=== PATIENT | female | born 1975 | race American Indian/Alaskan Native ===

== ENCOUNTER 2016-11-08 13:32 | Emergency (ER) | payer SELFPAY ==
[2016-11-08 15:26] VITALS: BP 151/87
--- NOTE | 2016-11-08 17:00 | Emergency Department Report ---
Entered by KATHRYN SANCHEZ, acting as scribe for MARYANN CESPEDES PA. ED Lower Extremity HPI - General Chief Complaint: Extremity Injury, Lower Stated Complaint: POSS BROKEN/SPRUNG R TOE Source: patient Mode of arrival: Ambulatory Limitations: No Limitations - History of Present Illness Initial Comments: 41 year old female with no significant PMHx presents to the ED c/o right 5th phalanges pain that began 2 hours ago. Patient states she was walking and her toes slipped out of her shoe, and subsequently bent. Rates pain a 10/10 in severity. Associated symptoms include numbness, but she denies swelling, tingling, and fever. Patient was driven to the ED by her . LMP 2016. Complaint: foot injury (right 5th phalanges) Onset/Timin -: hour(s) Injury: Toes: Right (5th phalanges) Type of Injury: unknown Severity: moderate Severity scale (0 -10): 10 Improves With: nothing Worsens With: nothing Context: walking Other Symptoms: other (numbness) Associated Symptoms: numbness, able to partially bear weight, ambulatory. denies: snap/pop sensation, swelling, tingling - Related Data Previous Rx's Medication Instructions Recorded Last Taken Type Acetaminophen/Codeine [Tylenol 1 tab PO Q4HR PRN #20 tablet 11/08/16 Unknown Rx /Codeine # 3 tab] Allergies Allergy/AdvReac Type Severity Reaction Status Date / Time iodine Allergy Angioedema Verified 11/08/16 15:19 ED Review of Systems Comment: All other systems reviewed and negative Constitutional: denies: chills, fever, other (tingling) Respiratory: denies: cough, orthopnea, shortness of breath, SOB with exertion, SOB at rest Cardiovascular: denies: dyspnea on exertion, orthopnea Gastrointestinal: denies: nausea, vomiting Musculoskeletal: other (5th right phalanges pain) Skin: denies: rash, other (5th phalanges edema and erythema) Neurological: numbness ED Past Medical Hx - Past Medical History Hx Asthma: Yes - Surgical History Additional Surgical History: Back, DNC - Social History Smoking Status: Never Smoker Substance Use Type: Alcohol - Medications Home Medications: Home Medications Medication Instructions Recorded Confirmed Last Taken Type Acetaminophen/Codeine [Tylenol 1 tab PO Q4HR PRN #20 tablet 11/08/16 Unknown Rx /Codeine # 3 tab] ED Physical Exam - General Limitations: No Limitations General appearance: alert, in no apparent distress - Head Head exam: Present: atraumatic, normocephalic - Eye Eye exam: Present: normal appearance, EOMI Pupils: Present: normal accommodation - ENT ENT exam: Present: normal exam, mucous membranes moist - Neck Neck exam: Present: normal inspection, full ROM - Respiratory Respiratory exam: Present: normal lung sounds bilaterally. Absent: respiratory distress, wheezes, rales, rhonchi - Cardiovascular Cardiovascular Exam: Present: regular rate, normal rhythm. Absent: systolic murmur, diastolic murmur, rubs, gallop - GI/Abdominal GI/Abdominal exam: Present: soft. Absent: distended - Extremities Exam Extremities exam: Present: normal inspection, full ROM, tenderness (right 5th phalanges tenderness), normal capillary refill. Absent: joint swelling (right 5th phalanges) - Expanded Lower Extremity Exam Right Hip exam: Present: normal inspection, full ROM Upper Leg exam: Present: normal inspection, full ROM Knee exam: Present: normal inspection, full ROM Lower Leg exam: Present: normal inspection, full ROM Ankle exam: Present: normal inspection, full ROM Foot/Toe exam: Present: normal inspection, full ROM, tenderness (right 5th phalanges). Absent: swelling, abrasion, laceration, ecchymosis, deformity, dislocation, erythema Neuro vascular tendon exam: Present: no vascular compromise. Absent: pulse deficit, abnormal cap refill, motor deficit, sensory deficit, tendon deficit, pallor Gait: Positive: observed and limited by pain - Back Exam Back exam: Present: normal inspection, full ROM - Neurological Exam Neurological exam: Present: alert, oriented X3, normal gait - Psychiatric Psychiatric exam: Present: normal affect, normal mood - Skin Skin exam: Present: warm, dry, intact. Absent: rash ED Course Vital Signs 11/08/16 15:20 Temperature 98.1 F Pulse Rate 96 H Respiratory 18 Rate Blood Pressure 151/87 O2 Sat by Pulse 98 Oximetry ED Lower Extremity MDM - Medical Decision Making Patient was evaluated in fast track area of ED by this provider. Patient presented with right 5th phalanges pain that began 2 hours ago. In the ED, the toe will be thao taped. Patient is in no acute distress at this time. She will be discharged home in a surgical boot with a prescription for Tylenol 3. Mother instructed to follow up with an orthopedic doctor. Patient verbalized understanding. She is encouraged to return to the emergency room for any worsening symptoms. ED Disposition Clinical Impression: Closed fracture of fifth toe of right foot Disposition: DISCHARGED TO HOME OR SELFCARE Is pt being admited?: No Does the pt Need Aspirin: No Condition: Stable Instructions: Toe Fracture (ED) Additional Instructions: Please keep the toe thao tape it takes approximately 6 weeks for proper healing. Refer to orthopedics as listed below for your convenience I recommend that she least follow-up with the one time to be sure that is healing properly. Prescriptions: Acetaminophen/Codeine [Tylenol /Codeine # 3 tab] 1 tab PO Q4HR PRN #20 tablet PRN Reason: Pain Referrals: PRIMARY CARE, [Primary Care Provider] - 3-5 Days DANNY JUÁREZ MD [Staff Physician] - 3-5 Days This documentation as recorded by the LAURA villafana JASMINE,accurately reflects the service I personally performed and the decisions made by , MARYANN CESPEDSE PA.
--- NOTE | 2016-11-09 08:32 | XRay Report ---
X-ray RIGHT FIFTH TOE THREE VIEWS: 11/08/16 13:32:00 CLINICAL: Trauma and pain. FINDINGS: A transverse nondisplaced fracture of the proximal phalanx of the fifth toe. No callus. The rest of the bones are normal. The joint spaces are normal. Normal soft tissues. No soft tissue air or foreign body. IMPRESSION: Acute traumatic nondisplaced closed fracture of the proximal phalanx of the fifth toe.
== END 2016-11-08 17:20 | disposition home or self-care (01) ==
LOC: ED 13:32
DX: S92.591A Other fracture of right lesser toe(s), initial encounter for closed fracture (principal); J45.909 Unspecified asthma, uncomplicated; Z88.8 Allergy status to other drugs, medicaments and biological substances; W18.49XA Other slipping, tripping and stumbling without falling, initial encounter; Y93.89 Activity, other specified; Y92.89 Other specified places as the place of occurrence of the external cause; Y99.8 Other external cause status
CPT/HCPCS: 81025